=== PATIENT | female | born 1995 | race African-American/Black ===

== ENCOUNTER 2018-08-25 00:40 | Emergency (ER) | payer SELFPAY ==
[2018-08-25] MEDS ORDERED: Lidocaine 1% w/Epinephrine 1:100K 20 ML VIAL ONE (01:37)
== END 2018-08-25 02:06 | disposition home or self-care (01) ==
LOC: ERS 00:40
DX: S61.011A Laceration without foreign body of right thumb without damage to nail, initial encounter (principal); W26.0XXA Contact with knife, initial encounter
CPT/HCPCS: 12001; J2001